=== PATIENT | female | born 2000 | race Caucasian/White ===

== ENCOUNTER → 2020-07-31 | Outpatient (CLI) | payer BC | END | disposition home or self-care (01) | LOC: LABWHC1 09:28 | PROVIDERS: ATTEND Internal Medicine | DX: Z20.828 Contact with and (suspected) exposure to other viral communicable diseases (principal) | CPT/HCPCS: U0003; C9803 ==

== ENCOUNTER → 2021-02-05 | Outpatient (CLI) | payer BC ==
[2021-02-05 14:20] LABS: HCT 39.2 % (37.2-46.3); HGB 12.5 g/dL (12.0-15.0); MCHC 31.9 g/dL (32.0-37.0); MCV 87.9 fL (80.0-97.0); Mean Platelet Volume 10.6 fL (9.5-12.2); Platelet Count 284 X 10*3/uL (140-440); RBC 4.46 X 10*6/uL (4.10-5.20); RDW 12.6 % (11.5-14.5); WBC 8.36 X 10*3/uL (4.50-10.00)
[2021-02-05 22:03] LABS: African American GFR (CKD) 144.6 (60.0-200.0); Albumin 4.3 g/dL (3.80-4.90); Albumin/Globulin Ratio 1.48 (1.60-3.17); Anion Gap 8.3 mmol/L (4.00-12.00); Calcium 9.4 mg/dL (8.7-10.3); Carbon Dioxide 21.7 mmol/L (21.6-31.8); Chol/HDL Ratio 2.58; Globulin 2.9 g/dL (1.6-3.3); LDL Cholesterol,Calculated 75.2 mg/dL (0.0-131.0); Non-African American GFR(CKD) 124.7 (60.0-200.0); Potassium 4.6 mmol/L (3.5-5.5); Total Bilirubin 0.3 mg/dL (0.2-1.2); Total Protein 7.2 g/dL (6.2-8.2); VLDL Calculation 14.8 mg/dL (5.00-40.00)
== END | disposition home or self-care (01) ==
LOC: LABWHC1 10:27
PROVIDERS: ATTEND Physician Assistant Medical
DX: Z00.00 Encounter for general adult medical examination without abnormal findings (principal); Z13.220 Encounter for screening for lipoid disorders; Z13.29 Encounter for screening for other suspected endocrine disorder; Z13.228 Encounter for screening for other metabolic disorders
CPT/HCPCS: 36415; 80053; 80061; 84443; 85027

== ENCOUNTER → 2021-11-25 | Outpatient (CLI) | payer BC ==
--- NOTE | 2021-11-26 09:49 | CT ---
EXAMINATION TYPE: CT soft tissue neck w con DATE OF EXAM: 11/25/2021 3:10 PM COMPARISON: None HISTORY: left side lump CT DLP: 381 mGycm Automated exposure control for dose reduction was used. CONTRAST: CT scan of the neck is performed following with IV Contrast, patient injected with 100 mL of Isovue 3 00. Axial images are obtained, coronal and sagittal reformatted images are reviewed. FINDINGS: Patient's palpable abnormality is marked with an overlying BB. Airway: No gross abnormality seen. Parotid/submandibular glands: No gross abnormality seen. Carotid/Vascular Structures: Normal Osseous Structures: Unremarkable Other: The site of patient's palpable abnormality benign-appearing lymph node is present with short a xis measurement of only 6 to 7 mm and suggestion of fatty hilus, multiple nodes are present in the bi lateral posterior cervical chains which show a benign appearance. IMPRESSION: Benign-appearing nodes are present within the neck as described. Follow-up clinically
== END | disposition home or self-care (01) ==
LOC: RADCTMAIN 14:36
PROVIDERS: ATTEND Family Medicine
DX: R22.1 Localized swelling, mass and lump, neck (principal)
CPT/HCPCS: 70491; Q9967

== ENCOUNTER → 2022-12-28 | Outpatient (CLI) | payer BC ==
--- NOTE | 2022-12-28 13:07 | CT ---
EXAMINATION TYPE: CT abdomen pelvis wo con DATE OF EXAM: 12/28/2022 COMPARISON: None INDICATION: Right lower quadrant pain DLP: 332.9 mGycm, Automated exposure control for dose reduction was used. CONTRAST: 0 mL of Isovue 300. Study performed without Oral Contrast TECHNIQUE: Axial images were obtained from above the diaphragm to the pubic rami in the axial plane a t 5 mm thick sections. Reconstructed images are reviewed on the computer in the coronal plane. FINDINGS: Limited CT sections are obtained the lung bases. The lung bases are clear. CT ABDOMEN: Liver: Normal Spleen: Normal Pancreas: Normal Adrenal glands: The adrenal glands are normal. Gallbladder: Normal Kidneys: No masses are evident. No hydronephrosis is present. No cysts are present. No renal stone s are identified. No hydroureter. Aorta: Normal Inferior vena cava: Normal. CT PELVIS: Loops of bowel within the abdomen and pelvis are normal. This study is bilateral contrast limitin g bowel evaluation. Small amount of fecal residual rectum. Appendix: Normal as visualized. Significant abdominal fat is not evident on the limiting evaluation. No obvious inflammatory changes are evident. Urinary bladder: Normal. Genitourinary structures: Uterus is unremarkable. There is a 2.3 cm cyst on the right ovary. Left adn exa appears normal. Osseous structures: No suspicious lytic or sclerotic lesions. IMPRESSIONS: 1. 2.3 cm right ovarian cyst. 2. Appendix with limited visualization appears within normal limits. 3. Mild fecal retention distal colon
== END | disposition home or self-care (01) ==
LOC: RADCTMAIN 12:20
PROVIDERS: ATTEND Family Medicine
DX: N83.201 Unspecified ovarian cyst, right side (principal); K56.41 Fecal impaction; R10.823 Right lower quadrant rebound abdominal tenderness; R10.2 Pelvic and perineal pain; R11.0 Nausea
CPT/HCPCS: 74176

== ENCOUNTER → 2023-08-08 | Outpatient (CLI) | payer BC ==
--- NOTE | 2023-08-08 11:53 | XR ---
EXAMINATION TYPE: XR abdomen 1V DATE OF EXAM: 08/08/2023 11:40 AM CLINICAL INDICATION:Female, 23 years old with history of [id number] ABD PAIN,ACUTE GASTRITIS; COMPARISON: 12/28/2022 TECHNIQUE: One radiographic view of the abdomen was obtained. FINDINGS: The bowel gas pattern is nonspecific without dilated loops of small or large bowel. There i s no evidence for organomegaly or pneumoperitoneum. The osseous structures are intact. No abnormal calcifications are present. Fecal material and gas are demonstrated throughout the colon and rectum. IMPRESSION: Nonspecific bowel gas pattern without radiographic evidence for acute process.
== END | disposition home or self-care (01) ==
LOC: RADXRYALE 11:29
PROVIDERS: ATTEND Family Medicine
DX: K29.00 Acute gastritis without bleeding (principal); R14.0 Abdominal distension (gaseous)
CPT/HCPCS: 74018